=== PATIENT | male | born 1935 | race Caucasian/White ===

== ENCOUNTER 2020-09-25 12:20 | Inpatient (IN) | payer OTHER ==
[~2020-09-25] VITALS: Ht 175.3 cm; Wt 89.4 kg
[2020-09-25] VITALS (20 sets, daily range): BP systolic 72–136; BP diastolic 40–75
[2020-09-25 12:31] LABS: BE(vivo) -3.8 mmol/L (-2 to +3); HCO3 20.5 mmol/L (22.0-26.0); PCO2 34.7 mmHg (35.0-45.0); pH 7.389 (7.360-7.450); sO2 99.8 % (92.0-98.0)
[2020-09-25 12:51] LABS: ABSOLUTE NEUTROPHILS 6.7 thou/uL (1.4-8.2); BASOPHILS 0.4 % (0.0-2.0); EOSINOPHILS 0.2 % (0.0-3.0); HEMOGLOBIN 12.1 gm/dL (14.0-18.0); LYMPHOCYTES 16.2 % (24.0-44.0); MCH 29.1 pg (26.0-34.0); MCHC 31.1 g/dL (28.0-37.0); MCV 93.7 fL (80.0-100.0); MONOCYTES 4.1 % (1.0-8.0); PLATELET COUNT 104 thou/uL (150-400); POLYS 79.1 % (36.0-66.0); RBC 4.16 mil/uL (4.50-6.00); WBC 8.5 thou/uL (4.0-11.0)
[2020-09-25 13:08] LABS: CALCIUM 9.2 mg/dL (8.5-10.1); CREATININE 4.3 mg/dL (0.7-1.3); POTASSIUM 4.6 mmol/L (3.5-5.1)
[2020-09-25 13:14] LABS: ALBUMIN 2.9 g/dL (3.4-5.0); TOTAL BILIRUBIN 0.6 mg/dL (0.2-1.0); TOTAL PROTEIN 7.1 g/dL (6.4-8.2)
[2020-09-25 14:28] LABS: URINE BILIRUBIN NEGATIVE (Negative); URINE BLOOD 3+ (Negative); URINE CLARITY SL CLOUDY; URINE COLOR YELLOW; URINE GLUCOSE-RANDOM* NEGATIVE (Negative); URINE KETONES NEGATIVE (Negative); URINE LEUKOCYTES-REFLEX TRACE (Negative); URINE NITRITE-REFLEX NEGATIVE (Negative); URINE PROTEIN (DIPSTICK) 2+ (Negative); URINE SPECIFIC GRAVITY >= 1.030 (1.005-1.035)
[2020-09-25 14:40] LABS: CASTS None Seen /LPF (None Seen); CRYSTALS None Seen /LPF (None Seen); SQUAMOUS 4-10 Moderate /LPF (0-3); URINE RBC 3-10 Few /HPF (0-2)
[2020-09-25 14:41] LABS: BACTERIA-REFLEX 1-9 Few /HPF (None Seen); URINE WBC-REFLEX 0-5 Rare /HPF (0-5)
[2020-09-25 14:48] LABS: APTT 24.1 Seconds (24.5-32.8); FIBRINOGEN 286.3 mg/dL (210-360); INR 1.1; PROTIME 11.2 Seconds (9.3-11.4)
[2020-09-25] MEDS ORDERED: PROSCAR 5MG TABL5 M1 PO (17:58)
[2020-09-25] MEDS ORDERED: SYNTHROID125 MC1 PO (17:59)
[2020-09-25] MEDS ORDERED: CLONAZEPAM 1 MG1 M1 PO (17:59)
[2020-09-25] MEDS ORDERED: MUPIROCIN1 GM TOP (18:00)
[2020-09-25] MEDS ORDERED: LOSARTAN-HCTZ1 EAC3 PO (18:00)
[2020-09-25] MEDS ORDERED: NAMENDA XR28 MG PO (18:01)
[2020-09-25] MEDS ORDERED: SANTYL OINTMENT30 G1 TOP (18:02)
[2020-09-25] MEDS ORDERED: REQUIP 1 MG TABL1 M1 PO (18:02)
[2020-09-25] MEDS ORDERED: ZINC50 MG PO (18:03)
[2020-09-25] MEDS ORDERED: NORVASC10 MG PO (18:04)
[2020-09-25] MEDS ORDERED: ASCORBIC ACID500 MG PO (18:05)
[2020-09-25] MEDS ORDERED: ARICEPT10 M1 PO (18:05)
[2020-09-25] MEDS ORDERED: ASA81BEC PO (18:05)
[2020-09-25] MEDS ORDERED: LIPITOR40 MG PO (18:06)
[2020-09-25] MEDS ORDERED: CARBIDOPA-LEVODOPA (18:07)
[2020-09-25] MEDS ORDERED: CELEXA 20 MG TA20 MG PO (18:08)
[2020-09-25] MEDS ORDERED: CLONIDINE HCL0.1 MG PO (18:09)
[2020-09-26] VITALS (18 sets, daily range): BP systolic 93–141; BP diastolic 37–64
[2020-09-26 05:59] LABS: ABSOLUTE NEUTROPHILS 6.9 thou/uL (1.4-8.2); BASOPHILS 0.2 % (0.0-2.0); HEMATOCRIT 34.2 % (42.0-52.0); HEMOGLOBIN 10.9 gm/dL (14.0-18.0); LYMPHOCYTES 9.8 % (24.0-44.0); MCH 29.6 pg (26.0-34.0); MCV 92.4 fL (80.0-100.0); MONOCYTES 1.2 % (1.0-8.0); PLATELET COUNT 86 thou/uL (150-400); POLYS 88.8 % (36.0-66.0); RDW 16.6 % (10.5-14.5); WBC 7.8 thou/uL (4.0-11.0)
[2020-09-26 06:44] LABS: CALCIUM 8.2 mg/dL (8.5-10.1)
[2020-09-26 06:46] LABS: CREATININE 2.9 mg/dL (0.7-1.3); POTASSIUM 3.5 mmol/L (3.5-5.1)
[2020-09-26 06:53] LABS: TROPONIN-I 0.08 ng/mL (<0.06)
--- NOTE | 2020-09-26 07:41 | EKG ---
[place] [address] [place] [address] ELECTROCARDIOGRAM REPORT Name: DONITA GONZALEZ Room #: 246-P ADM IN M.R.#: [id number] Admission: 09/25/20 Attend Phys: Torsten Hoang Discharge: Date of : 33 Report #: [id number] [facility] ED Test Date: 2020-09-25 Test Time: 12:32:49 Pat Name: DONITA GONZALEZ Department: Room: 246 Gender: M Trial Mgr: TRICIA : 1935 Requested By: Vandana Rivera Order Number: [id number] MD: Sarbjit Bentley Measurements Intervals [place] Rate: 64 P: CT: QRS: 59 QRSD: 167 T: 56 QT: 529 QTc: 546 Interpretive Statements Sinus rhythm with first-degree AV block Right bundle branch block No previous ECG available for comparison Electronically Signed On 09-26-2020 7:41:36 [employer] PROFESS[employer] by Sarbjit Bentley [email or web address] <ELECTRONICALLY SIGNED> By: Sarbjit Bentley MD, [facility] 09/26/20 0741 1232 1232 Sarbjit Bentley MD, FACC /EPI
--- NOTE | 2020-09-26 10:13 | 2DMMODE ---
[facility] [place] [address] 2 D/M-MODE ECHOCARDIOGRAM Name: DONITA GONZALEZ Room #: 246-P ADM IN M.R.#: [id number] Admission: 09/25/20 Attend Phys: Torsten Hoang Discharge: Date of : 33 Report #: [id number] THIS REPORT FOR: cc: LAYTON BRANHAM MD Physician not on staff Serafin Fraire MD ~ APPROVED REPORT Study performed: 09/26/2020 09:15:09 EXAM: Comprehensive 2D, Doppler, and color-flow Echocardiogram Patient Location: In-Patient Room #: [facility] Status: routine BSA: 1.93 HR: 90 bpm BP: 114/45 mmHg Other Information Study Quality: Adequate Technically limited study due to inability to position patient. Risk Factors: Cardiac Risk Factors: SOB Indications Bradycardia Dyspnea 2D Dimensions RVDd: 41.25 mm IVSd: 12.57 (7-11mm) LVOT Diam: 24.91 (18-24mm) LVDd: 44.68 mm PWd: 9.99 (7-11mm) LVDs: 30.12 (25-40mm) Left Atrium: 31.61 (27-40mm) Aortic Root: 30.20 mm IVC: 27.00 mm Volumes Left Atrial Volume (Systole) Single Plane 4CH: 48.10 mL Single Plane 2CH: 17.49 mL Aortic Valve [facility] [address] [place] [address] 2 D/M-MODE ECHOCARDIOGRAM Name: DONITA GONZALEZ Room #: 246-P ADM IN M.R.#: [id number] Admission: 09/25/20 Attend Phys: Torsten Canales Discharge: Date of : 33 Report #: [id number] Peak Aime.: 1.43 m/s AO Peak Gr.: 8.19 mmHg LVOT Max P.94 mmHg LVOT Max V: 1.22 m/s ELSY Vmax: 4.15 cm2 Mitral Valve MV Peak Gr.: 4.59 mmHg MV Mean Gr.: 1.88 mmHg E/A Ratio: 1.1 MV Decel. Time: 198.72 ms MV E Max Aime.: 1.03 m/s MV A Aime.: 0.94 m/s MV Max Aime.: 1.07 m/s MV Mean Aime.: 0.64 m/s MV VTI: 256.60 mm MV PHT: 57.63 ms IVRT: 27.68 ms TDI E/Lateral E': 12.88 Lateral E' Aime.: 0.08 m/s Pulmonary Valve PV Peak Amie.: 1.26 m/s PV Peak Gr.: 6.33 mmHg Tricuspid Valve TR Peak Aime.: 2.49 m/s TR Peak Gr.: 24.84 mmHg RVSP: 35.00 mmHg PA Pressure: 10.00 mmHg Left Ventricle The left ventricle is normal size. The left ventricular systolic function is normal. The left ventricular ejection fraction is within the normal range. LVEF is 55-60%. Grade II - pseudonormal filling dynamics. Right Ventricle The right ventricle is normal size. The right ventricular systolic function is normal. Atria The left atrium size is normal. The right atrium size is normal. Aortic Valve The aortic valve is normal in structure. Trace aortic regurgitation. There is no aortic valvular stenosis. [facility] [place] [address] [place] [address] 2 D/M-MODE ECHOCARDIOGRAM Name: DONITA GONZALEZ Room #: 246-P ADM IN M.R.#: [id number] Admission: 09/25/20 Attend Phys: Torsten Canales Discharge: Date of : 33 Report #: [id number] Mitral Valve The mitral valve is normal in structure. Trace mitral regurgitation. No evidence of mitral valve stenosis. Tricuspid Valve The tricuspid valve is normal in structure. Mild tricuspid regurgitation. The RVSP is 30-35 mmHg. Pulmonic Valve Pulmonic valve is not well visualized. There is no pulmonic valvular regurgitation. Great Vessels The aortic root is normal in size. IVC is dilated. Pericardium Prominent anterior epicardial fat pad is present. <Conclusion> No aortic regurgitation is present. The left ventricle is normal size. The left ventricular systolic function is normal. The right ventricle is normal size. The left atrium size is normal. Trace aortic regurgitation. Trace mitral regurgitation. Mild tricuspid regurgitation. <ELECTRONICALLY SIGNED> By: Serafin Fraire MD 09/26/20 1013 1013 1013 Serafin Fraire MD /INF
--- NOTE | 2020-09-26 11:03 | HC ---
[facility] [place] [address] [place] [address] CONSULTATION Name: DONITA GONZALEZ Room #: 246-P ADM IN M.R.#: [id number] Admission: 09/25/20 Attend Phys: Torsten Hoang Discharge: Date of : 33 Report #: [id number] THIS REPORT FOR: cc: LAYTON BRANHAM MD Physician not on staff Jerome Arenas MD ~ DATE OF SERVICE: 09/26/2020 INFECTIOUS DISEASE CONSULTATION ATTENDING PHYSICIAN: Dr. Hoang. REASON FOR EVALUATION: Sepsis, encephalopathy. HISTORY OF SUBJECTIVE: Chart reviewed, patient examined. This 84-year-old man with apparent history of dementia as well as Parkinson's, COPD, who apparently was found slumped over at this facility, was nonresponsive, was found to have some hypoxemia with saturations in the 80%. He was given supplemental oxygen. Rhythm suggested AFib due to concern about possible sepsis, he did get evaluated. Chest x-ray showed some scarring, although no acute process. He was hypernatremic with sodium 153 and his creatinine is 4.3, BUN of 102, suggestive of profound dehydration. Lactic acid was elevated at 4.3; however, repeat within a short period was down to 1.5. Coronavirus testing x 1 is negative thus far. He was empirically started on levofloxacin in clinic this morning is responsive. He is quite confused, complains of left knee pain. Apparently, this has been a chronic issue, although he states it does not hurt at the moment. Denies significant abdominal or pulmonary-related complaints. He is maintained on 4 liters of supplemental oxygen. Additional testing noted elevated cortisol of 127.6. Blood cultures are sterile thus far. Repeat creatinine was 2.9. ALLERGIES: RISPERIDONE. CURRENT MEDICATIONS: Include heparin, famotidine, levofloxacin, hydrocortisone. PAST MEDICAL HISTORY: As described above, Parkinson's dementia, COPD, seizure disorder, hypothyroidism, peripheral vascular disease, obstructive sleep apnea, hypertension, depression, hyperlipidemia, insomnia, BPH, bilateral TIAs with CVA, bilateral heel wounds. SOCIAL HISTORY: Unknown. FAMILY HISTORY: Noncontributory. REVIEW OF SYSTEMS: Otherwise, very limited. [facility] [address] [place] [address] CONSULTATION Name: DONITA GONZALEZ Room #: 246-P [facility] IN .R.#: [id number] Admission: 09/25/20 Attend Phys: Torsten Hoang Discharge: Date of : 33 Report #: [id number] PHYSICAL EXAMINATION: GENERAL: He appears chronically ill and undernourished. He is quite encephalopathic, [id number] distress. VITAL SIGNS: Temperature 98.6, pulse 64, respirations 12, blood pressure is 128/44. SKIN: Warm, dry, no rashes. HEENT: Normocephalic. Extraocular muscles intact. NECK: Supple. LUNGS: Diminished breath sounds, otherwise fairly clear. Few scattered crackles. HEART: Irregular. Borderline bradycardic, do not appreciate a murmur. ABDOMEN: Soft, nontender, minimal distention. Bilateral lower extremities have dressings with offloading boots. GENITOURINARY AND RECTAL: Deferred. LABORATORY DATA: Electrolytes: Sodium 150, potassium 3.5, chloride 119, bicarbonate is 23, anion gap of 8, BUN and creatinine 87 and 2.9, estimated GFR of 21. Blood cultures sterile thus far. Lactic acid 0.8 this morning. CBC: White count of 7.8, H and H 10.9 and 34.2, platelets of 86. Coronavirus testing x 1 is negative. Followup chest x-ray showed stable bibasilar infiltrates. TSH of 5.731. Urinalysis, 0-5 white cells. ASSESSMENT: Possible aspiration pneumonitis versus other source of infection versus noninfectious cause. I think it is reasonable to continue empiric therapy with Levaquin at the moment. He seems to have improved. We will follow up with x-rays to try to wean off oxygen support as allowed. He may well need a speech evaluation, was swallow study. At this point, I do not see any active focus of pyogenic infection that needs to be drained nor on exam point to a certain locus or either as well. Continue to monitor expectantly, certainly at risk for complications. <ELECTRONICALLY SIGNED> By: Jerome Arenas MD 09/26/20 1103 0821 0850 Jerome Arenas MD /nt
[2020-09-27 04:36] VITALS: BP 133/64
[2020-09-27 05:26] LABS: ABSOLUTE NEUTROPHILS 8.2 thou/uL (1.4-8.2); BASOPHILS 0.1 % (0.0-2.0); HEMATOCRIT 34.3 % (42.0-52.0); HEMOGLOBIN 10.9 gm/dL (14.0-18.0); LYMPHOCYTES 15.6 % (24.0-44.0); MCH 29.3 pg (26.0-34.0); MCHC 31.8 g/dL (28.0-37.0); MCV 92.3 fL (80.0-100.0); MONOCYTES 6.7 % (1.0-8.0); PLATELET COUNT 91 thou/uL (150-400); POLYS 77.6 % (36.0-66.0); RBC 3.72 mil/uL (4.50-6.00); RDW 16.7 % (10.5-14.5); WBC 10.5 thou/uL (4.0-11.0)
[2020-09-27 05:48] LABS: ALBUMIN 2.5 g/dL (3.4-5.0); CALCIUM 8.1 mg/dL (8.5-10.1); CREATININE 2.2 mg/dL (0.7-1.3); PHOSPHORUS 1.8 mg/dL (2.6-4.7)
[2020-09-27 06:10] LABS: POTASSIUM 2.8 mmol/L (3.5-5.1)
[2020-09-27 08:46] VITALS: BP 149/68
[2020-09-27 16:53] VITALS: BP 141/60
[2020-09-27 19:55] VITALS: BP 143/60
[2020-09-28 03:20] VITALS: BP 156/68
[2020-09-28 05:17] LABS: HEMATOCRIT 36.2 % (42.0-52.0); HEMOGLOBIN 11.5 gm/dL (14.0-18.0); MCH 29.2 pg (26.0-34.0); MCHC 31.8 g/dL (28.0-37.0); MCV 91.8 fL (80.0-100.0); RBC 3.95 mil/uL (4.50-6.00); RDW 16.5 % (10.5-14.5); WBC 7.1 thou/uL (4.0-11.0)
[2020-09-28 06:15] LABS: ALBUMIN 2.5 g/dL (3.4-5.0); CREATININE 1.8 mg/dL (0.7-1.3); MAGNESIUM 1.6 mg/dL (1.8-2.4); PHOSPHORUS 1.7 mg/dL (2.5-4.9); POTASSIUM 3.1 mmol/L (3.5-5.1)
[2020-09-28 08:16] VITALS: BP 145/58
[2020-09-28 15:56] VITALS: BP 133/56
[2020-09-28 23:26] VITALS: BP 133/54
[2020-09-29 04:00] VITALS: BP 121/52
[2020-09-29 04:04] VITALS: BP 140/67
[2020-09-29 05:55] LABS: ALBUMIN 2.2 g/dL (3.4-5.0); CALCIUM 7.5 mg/dL (8.5-10.1); CREATININE 1.5 mg/dL (0.7-1.3); PHOSPHORUS 1.7 mg/dL (2.5-4.9); POTASSIUM 3.1 mmol/L (3.5-5.1)
[2020-09-29 08:23] VITALS: BP 114/52
[2020-09-29 08:45] VITALS: BP 114/52
[2020-09-29] MEDS ORDERED: LEVOFLOXACIN750 MG PO (08:52)
--- NOTE | 2020-10-06 15:23 | HC ---
[facility] [place] [address] [address] [place] [address] CONSULTATION Name: DONITA GONZALEZ Room #: 435-P [facility] IN M.R.#: [id number] Admission: 09/25/20 Attend Phys: Torsten Ramone Beavers Discharge: 09/29/20 Date of : 33 Report #: [id number] THIS REPORT FOR: cc: LAYTON BRANHAM MD Physician not on staff Eugenio Doyle MD ~ DATE OF SERVICE: 09/26/2020 CHIEF COMPLAINT: Multiple pressure ulcerations. HISTORY OF PRESENT ILLNESS: This is an 84-year-old male patient who was brought to the hospital by EMS. He was found slumped over his kitchen table. He was noted to have bradycardia. He received atropine en route. He is now currently in ICU. He is not able to provide any information about himself currently. PAST MEDICAL HISTORY: Per the records, it is noted for dementia, hyperlipidemia, benign prostatic hypertrophy. CURRENT MEDICATIONS: Include Synthroid, famotidine, levofloxacin, hydrocortisone, morphine. ALLERGIES: RISPERIDONE AND VICRYL SUTURES. SOCIAL HISTORY: The patient lives in a nursing care facility. Otherwise, the history is unknown. FAMILY HISTORY: Unknown. REVIEW OF SYSTEMS: Not obtainable due to the patient's level of consciousness. PHYSICAL EXAMINATION: VITAL SIGNS: At this time include temperature 36.9, pulse rate 64, respiratory rate of 12, blood pressure 120/44. GENERAL: This is a chronically ill-appearing male patient who appears to be somnolent. HEENT: Head normocephalic. Nose and throat are clear. LUNGS: Diminished. HEART: Irregular without murmur. ABDOMEN: Soft. EXTREMITIES: Examination of the skin and lower extremities demonstrates what appeared to be stage 3 sacral pressure ulceration of the sacrum and left gluteal region. He has a stage 4 pressure ulceration to the left heel with some bone palpable. He has an unstageable pressure ulcer of the right heel, covered with some fibrin and slough. NEUROLOGIC: The patient has decreased level of consciousness, orientation is [address] [address] CONSULTATION Name: DONITA GONZALEZ Room #: [address] [place] [address] IN .R.#: [id number] Admission: 09/25/20 Attend Phys: Torsten Hoang Discharge: 09/29/20 Date of : 33 Report #: [id number] not assessable. LABORATORY DATA: Sodium 150, potassium 3.5, chloride 119, CO2 of 23, BUN 87, creatinine 2.9, glucose 104. White blood cell count 7.8 with a hemoglobin of 10.9, hematocrit 34.2. CLINICAL IMPRESSION: 1. 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 2. Stage IV pressure in the left heel. 3. Unstageable pressure ulcer of the right heel. 4. Generalized debility. 5. Sepsis. 6. Severe protein-calorie malnutrition with albumin 2.2. RECOMMENDATIONS: At this point in time, recommend Z-Guard and otherwise open to air. The sacral-gluteal region quarter strength Dakin's moist gauze to the left heel daily and then pressure reducing boots to both lower extremities. Recommend nutritional support and management of his current underlying problems. I appreciate being asked to see him in consultation. <ELECTRONICALLY SIGNED> By: Eugenio Doyle MD 10/06/20 1523 [id number] 1217 Eugenio Doyle MD /nt
== END 2020-09-29 16:37 | DRG 871 ==
LOC: ER 12:20 → 4S 14:03 → EROBS 14:03 → ICU 20:14 → 4S 09-26 17:59
PROVIDERS: Emergency Medicine; ADMIT Hospitalist; ATTEND Hospitalist
PROC: 02HV33Z Insertion of Infusion Device into Superior Vena Cava, Percutaneous Approach (ICD-10-PCS; principal; 2020-09-25)
DX: A41.9 Sepsis, unspecified organism (principal); L89.323 Pressure ulcer of left buttock, stage 3; J96.90 Respiratory failure, unspecified, unspecified whether with hypoxia or hypercapnia; E43 Unspecified severe protein-calorie malnutrition; R57.1 Hypovolemic shock; L89.624 Pressure ulcer of left heel, stage 4; L89.153 Pressure ulcer of sacral region, stage 3; N17.9 Acute kidney failure, unspecified; G93.40 Encephalopathy, unspecified; E86.0 Dehydration; Z66 Do not resuscitate; J44.9 Chronic obstructive pulmonary disease, unspecified; G40.909 Epilepsy, unspecified, not intractable, without status epilepticus; G47.00 Insomnia, unspecified; N40.0 Benign prostatic hyperplasia without lower urinary tract symptoms; I10 Essential (primary) hypertension; E78.5 Hyperlipidemia, unspecified; E03.9 Hypothyroidism, unspecified; I73.9 Peripheral vascular disease, unspecified; G47.33 Obstructive sleep apnea (adult) (pediatric); F32.9 Major depressive disorder, single episode, unspecified; L89.610 Pressure ulcer of right heel, unstageable; G20 Parkinson's disease; F02.80 Dementia in other diseases classified elsewhere, unspecified severity, without behavioral disturbance, psychotic disturbance, mood disturbance, and anxiety; E83.39 Other disorders of phosphorus metabolism; Z20.822 Contact with and (suspected) exposure to COVID-19; Z88.8 Allergy status to other drugs, medicaments and biological substances; Z86.73 Personal history of transient ischemic attack (TIA), and cerebral infarction without residual deficits; Z68.29 Body mass index [BMI] 29.0-29.9, adult; Z79.82 Long term (current) use of aspirin; Z79.899 Other long term (current) drug therapy
CPT/HCPCS: 10078; 10195